=== PATIENT | female | born 1955 | race Asian ===

== ENCOUNTER → 2017-02-25 | Outpatient (CLI) | payer BC | LOC: CIMAGING 13:47 | PROVIDERS: ATTEND Family Medicine | DX: M53.3 Sacrococcygeal disorders, not elsewhere classified (principal) | CPT/HCPCS: 72170-PO ==

== ENCOUNTER 2018-03-10 19:00 | Emergency (ER) | payer BC ==
[2018-03-10] MEDS ORDERED: MECLIZINE HCL 25 MG TAB PO ONE (19:21)
[2018-03-10] MEDS ORDERED: ONDANSETRON DISINTEGRATING 4 MG TAB PO ONE (19:21)
[2018-03-10] MEDS ORDERED: NS 500 ML IV ONE (19:40)
--- NOTE | 2018-03-10 20:11 | EDPHY ---
Addendum entered and electronically signed by Camron Vyas MD 03/11/18 00: 19: I Went over the patient's CT angiogram results negative for dissection or aneurysm or thrombus. Patient like to go home I did offer hospital admission as she still feels somewhat vertiginous however she is requesting discharge home. She did ambulate well throughout the emergency room she feels comfortable going home. Return precautions discussed with her. I also recommend she follows up with her primary care doctor. Meclizine prescription provided. Original Note: H & P Smoking Status: Never smoked <Rufino Dominguez - Last Filed: 03/10/18 20:29> <Deandre Britt - Last Filed: 03/10/18 22:38> <Camron Vyas - Last Filed: 03/10/18 23:11> Time Seen by Provider: 03/10/18 19:12 HPI/ROS: HPI Vertigo. Vomiting. 63-year-old female by private vehicle with her . This patient reports that since 6:00 p.m. Last night she has had sudden-onset vertigo. She reports that she has had a difficult time walking because of this. She reports that she put some qian root extract on her forehead last night and thought that she felt better this morning but then the vertigo came back. She has had 2 episodes of vomiting associated with this vertigo. Vomiting described as nonbilious and nonbloody. She reports that she has symptoms when she is not moving but she reports that the symptoms are worse when she is moving. She has had a difficult time walking because of the vertigo. She describes vertigo classically. She reports that she just returned from [place] on where she was visiting family. She has had an upper respiratory infection. With nasal congestion and an intermittent dry cough. Please see review of systems for further details. ROS: Constitutional: No fever, no chills. As above. Eyes: No discharge. No changes in vision. ENT: No sore throat. As above. Respiratory: As above. No shortness of breath. Cardiac: No chest pain, no palpitations. Gastrointestinal: No abdominal pain, as above, no diarrhea. Genitourinary: No hematuria. No dysuria or increased frequency with urination. Musculoskeletal: No back pain. No neck pain. No myalgias or arthralgias. Skin: No rashes. Neurological: No headache. No focal weakness or altered sensation. As above. Past medical history: AML in remission, stem cell transplant in 2013, asthma, bronchitis, rheumatoid arthritis, hyperlipidemia, type 2 diabetes, and hernia repair. Social history: Nonsmoker. No alcohol. Here with family. Physical Exam: General Appearance: Alert, no distress. This patient is responding to questions appropriately and in full sentences. This patient appears well- hydrated and well-nourished. Eyes: Pupils equal and round and reactive to light at 3-2 mm bilaterally, no pallor or injection. No lid edema, erythema or injection. Mild horizontal unidirectional nystagmus. Negative head impulse testing. ENT, Mouth: Mucous membranes are moist. The pharyngeal tissues are unremarkable. No edema or swelling. No asymmetry suggestive of abscess. No erythema or exudates. Respiratory: There are no retractions, lungs are clear to auscultation with good air movement bilaterally. Cardiovascular: Regular rate and rhythm. No murmur. Gastrointestinal: Abdomen is soft and nontender, no masses, bowel sounds normal. No focal tenderness at McBurney's point. No Torres sign. Neurological: Motor sensory function is grossly intact. Cranial nerves are normal. Skin: Warm and dry, no rashes. Musculoskeletal: Neck is supple and nontender. No pain on flexion of her neck. Extremities are symmetrical. All joints range without pain or impingement. Psychiatric: No agitation. No depression. Database: EKG: EKG time is 8:13 p.m.; EKG shows a narrow complex normal sinus rhythm with a ventricular rate of 66. The ME, QRS, QT intervals are within normal limits. There are no ST-T wave changes indicative of ischemic or injury pattern. No evidence of right heart strain. Interpreted by me. Imaging: MRI of brain with and without contrast: Procedures: Emergency department course: Triage vital signs reviewed and are normal. EKG obtained. IV placed. She was placed on a color television console monitor. She will be started on 500 cc of IV normal saline to be given over the next hour. Her presentation is concerning for a possible central etiology of vertigo. She has mixed findings involving her exam as well as her history. I discussed transfer to the [facility] Emergency Department for MRI brain imaging. Both she and her endorse. They do not want to go by ambulance. 8:15 p.m., I spoke with emergency physician attending at [facility] Dr. Zev Casas. Case was discussed in detail with him. He will be the accepting physician for this patient. He will order the MRIs when she arrives to the emergency department there. I have filled out the appropriate transfer paperwork. 8:30 p.m., the patient was re-evaluated. She is feeling a little bit better after above medication but is still vertiginous. I reviewed the transfer procedure with the 2 of them. The patient and do not want to take an ambulance. They do understand the risks. The will drive her to the emergency department at [facility]. The nursing staff here has notified the emergency department staff there that she will need assistance on arrival. The patient's remaining emergency department course under my care has been uneventful. She was transferred in stable condition. Differential Diagnosis: The differential diagnosis on this patient includes but is not limited to benign positional vertigo, vestibular neuritis, labyrinthitis, posterior circulation CVA. This represents a partial list of diagnoses considered. These considerations are based on history, physical exam, past history, reassessment and diagnostic testing. (Rufino Dominguez) 2116: I assumed care of this patient from Dr. Dominguez as she is now in the [facility] Emergency Department from [facility]. Brain MRI w/ and w/o contrast ordered. 2230: I spoke with Dr. Veronica, radiologist, regarding patient's brain MRI. There is a questionable left vertebral artery dissection; neck CTA ordered. 2239: Patient care turned over to Dr. Vyas at shift change. (Deandre Britt) Constitutional: Initial Vital Signs Temperature (C) 36.6 C 03/10/18 19:11 Heart Rate 71 03/10/18 19:11 Respiratory Rate 16 03/10/18 19:11 Blood Pressure 106/64 03/10/18 19:11 O2 Sat (%) 95 03/10/18 19:11 O2 Delivery Mode Room Air Allergies/Adverse Reactions: latex [Latex] Allergy (Intermediate, Verified 03/10/18 19:07) Itching Bleach (Sodium Hypochlorite) Allergy (Verified 03/10/18 19:08) Penicillins Allergy (Verified 03/10/18 20:36) FERMALDAHYDE Allergy (Severe, Uncoded 03/10/18 19:07) SWELLING, ITCHING Home Medications: Medication Instructions Recorded JANUVIA 06/12/09 Albuterol PRN 07/07/15 Crestor 07/07/15 Singulair 07/07/15 Levemir 03/10/18 Medical Decision Making <Rufino Dominguez - Last Filed: 03/10/18 20:29> - Diagnostics Imaging: Discussed imaging studies w/ personnel specialist Radiologist, I viewed and interpreted images myself <Deandre Britt - Last Filed: 03/10/18 22:38> <Camron Vyas - Last Filed: 03/10/18 23:11> - Diagnostics Imaging Results: Imaging Impressions Brain MRI 03/10/18 21:20 Impression: 1.Equivocal, subtle evidence of a distal left vertebral artery dissection, with normal flow in the dominant distal right vertebral artery and basilar artery. Consider CT angiography for further evaluation. 2. No evidence for posterior fossa or other infarction, abnormal enhancement or mass lesion. Results discussed with Dr. Britt at 10:27 PM. ED Course/Re-evaluation: 2311: CT angiogram of the neck called to me by Dr. Veronica. This is negative for vertebral artery dissection. Negative for thrombus or aneurysm. Please see full dictation for details. (Camron Vyas) - Data Points Laboratory Results: 03/10/18 20:22 POC Hgb 14.6 gm/dL gm/dL (12.6-16.3) POC Hct 43 % % (38-47) POC Sodium 139 mEq/L mEq/L (135-145) POC Potassium 3.8 mEq/L mEq/L (3.3-5.0) POC Chloride 103 mEq/L mEq/L (97-110) POC Total CO2 24 mEq/L mEq/L (22-31) POC BUN 16 mg/dL mg/dL (7-23) POC Creatinine 0.7 mg/dL mg/dL (0.6-1.0) POC Glucose 201 mg/dL H mg/dL (70-100) Medications Given: Discontinued Medications Sodium Chloride (Ns) 500 mls @ 1,000 mls/hr IV EDNOW ONE PRN Reason: Protocol Stop: 03/10/18 20:09 Last Admin: 03/10/18 19:43 Dose: 500 mls Meclizine HCl (Meclizine Hcl) 25 mg PO EDNOW ONE Stop: 03/10/18 19:22 Last Admin: 03/10/18 19:43 Dose: 25 mg Ondansetron HCl (Zofran Odt) 4 mg PO EDNOW ONE Stop: 03/10/18 19:22 Last Admin: 03/10/18 19:27 Dose: 4 mg Point of Care Test Results: Chemistry 03/10/18 20:22 POC Sodium 139 mEq/L mEq/L (135-145) POC Potassium 3.8 mEq/L mEq/L (3.3-5.0) POC Chloride 103 mEq/L mEq/L (97-110) POC Total CO2 24 mEq/L mEq/L (22-31) POC BUN 16 mg/dL mg/dL (7-23) POC Creatinine 0.7 mg/dL mg/dL (0.6-1.0) POC Glucose 201 mg/dL H mg/dL (70-100) ISTAT H&H 03/10/18 20:22 POC Hgb 14.6 gm/dL gm/dL (12.6-16.3) POC Hct 43 % % (38-47) Departure <Rufino Dominguez B - Last Filed: 03/10/18 20:29> <Deandre Britt - Last Filed: 03/10/18 22:38> <Camron Vyas - Last Filed: 03/10/18 23:11> - Departure Disposition: Home, Routine, Self-Care Clinical Impression: Vertigo Condition: Good Instructions: Vertigo (ED) Additional Instructions: 1. Drink plenty of fluids. 2. Return to the emergency department immediately for headache, numbness, weakness, severe vertigo, neck pain, inability to tolerate fluids by mouth or other worsening of condition. 3. If symptoms persist for more than 48 hours, followup with your primary care physician and/or a neurologist for further evaluation. Referrals: Gay Duggan MD [Primary Care Provider] - As per Instructions
[2018-03-10] MEDS ORDERED: GADOBUTROL 10 ML VIAL IVP ONE (21:50)
[2018-03-10] MEDS ORDERED: IOHEXOL 350mgI/ML (OMNIPAQUE) 150 ML BTL IV ONE (22:36)
--- NOTE | 2018-03-10 22:38 | CPEKG ---
Test Reason : OPEN Blood Pressure : / mmHG Vent. Rate : 066 BPM Atrial Rate : 066 BPM P-R Int : 120 ms QRS Dur : 079 ms QT Int : 420 ms P-R-T Axes : 039 068 060 degrees QTc Int : 441 ms Sinus rhythm Confirmed by Rufino Dominguez ([id number]) on 03/10/2018 10:37:26 PM Referred By: Rufino Dominguez Confirmed By:Rufino Dominguez
[2018-03-11 00:28] VITALS: BP 119/76
== END 2018-03-11 00:37 | disposition home or self-care (01) ==
LOC: CED 19:00
DX: R42 Dizziness and giddiness (principal); R11.10 Vomiting, unspecified
CPT/HCPCS: 82435-PO; 82565-PO; 82947-PO; 84132-PO; 84295-PO; 84520-PO; 85014-ER; A9585; Q9967